=== PATIENT | male | born 1940 ===

== ENCOUNTER → 2016-08-18 | Outpatient (CLI) | payer MEDICARE, OTHER ==
[~2016-08-18] MED LIST: CALCIUM600 MG PO; CELEXA10 MG PO; CLARITIN10 MG PO; CLONAZEPAM0.5 M1 PO; COQ10-VIT E 201 EACH PO; COUMADIN **IA7.5 MG PO; CPAP INH; DESYREL100 MG PO; DOXYCYCLINE100 MG PO; EFFEXOR75 MG PO; FISH OIL 1,0001 EACH PO; GABAPENTIN300 MG PO; GUAIFENESIN400 MG PO; LASIX40 MG; LIPITOR40 MG PO; LOMOTIL1 TAB PO; LOVENOX150 MG/1 M SUB-Q; MAGNESIUM OXID420 MG PO; MINIPRESS1 MG PO; MINIPRESS2 MG; NASACORT16.9 ML NOSE; NEURONTIN300 MG PO; POTASSIUM CHLO10 MEQ PO; PRAVASTATIN SOD10 MG; PRINIVIL (ZESTRI5 MG PO; PROTONIX40 MG PO; PROVENTIL OR V6.7 GM INH; RESTASIS1 EACH OPHTH; SINEMET PO; SPIRIVA HANDIHA1 KIT INH; SYMBICORT 80-10.2 GM INH; TENORMIN25 MG PO; THERA-VITE W/ B1 TAB PO; VENLAFAXINE H37.5 MG PO; VITAMIN D32000 UNIT PO; ZYLOPRIM300 MG PO
== END ==
LOC: LGSOS 13:37
DX: E78.5 Hyperlipidemia, unspecified (principal)